=== PATIENT | female | born 1940 | race Caucasian/White ===

== ENCOUNTER 2017-04-26 13:17 | Inpatient (IN) ==
[2017-04-26] MEDS: LORazepam 0.5 MG TABLET PO PRN (15:30)
[2017-04-26 15:44] VITALS: BMI 23.2
--- NOTE | 2017-04-26 16:15 | History & Physical Report ---
History of Present Illness Date: 04/26/17 HPI: Safia Marmolejo is a 77 y/o woman who was admitted to [facility] on 04/26/17 for agitation, anxiety, hallucinations, and morbid ideation. Her PCP is Dr. Dave Naqvi. She recently underwent knee surgery 5 wks ago. Since then she hasn't eaten or slept well. She's been having hallucinations, confusion, and has been wandering intermittently since surgery. She verbalized that she wished she would . She was hospitalized 3 nights at [facility] but her symptoms did not improve, and arrangements were made for transfer to [facility]. Labs @ [facility]: WBC 5.86; hgb 14.8, plt 294, Na 141, K 3.6, CO2 23, BUN 10, Cr 0.69, Glu 140, Ca 8.9 (was 10.6 on admit), TSH 1.60, trop neg, CXR showed borderline cardiomegaly but no acute findings, LFTs normal. Was in A-fib on admit but that resolved. CT head was done but report is not included in transfer packet. Safia was seen soon after arriving to the unit. Her , son, and son-in- law were also present and provided collateral hx. She hasn't been sleeping well for about a year. She hasn't eaten hardly anything at all x 1 month. She's lost 25 lbs over the last year. Her hallucinations have been morbid and disturbing - seeing people, seeing toads all over, a 6.5 lb baby, a woman lying on the couch in anabaptism. Sometimes she recognizes that she's hallucinating but sometimes she doesn't. She states that ever since sx she's been in a panic - she reports "waking up" during sx in a panic, then fell back asleep. She then went "in a panic" when she found out she was on "hard medications" ie narcotics. She c/o dizziness but denies falling or syncope. No chest pain or SOA. States she has a-fib when she's panicked. She is not anticoagulated other than ASA, for reasons unbeknownst to her. She does not see a grinding room inspector. She denies any abdominal pain or GI c/o causing anorexia - simply has no appetite and nothing looks good. No n/v/d/c; urinary problems. She denies leg swelling bruising/wounds. No vision changes, focal neuro deficits, paresthesias or headaches. Family is primarily concerned about weight loss and anorexia along with psychiatric sx. also notes that she's been "more snippy" since starting on the Parkinson's meds in 2005. She also has a hx of hallucinations caused by her Parkinson's meds, and her neurologist Dr. Jones adjusted her meds. Review of Systems All systems PM: 10-point ROS was reviewed, no additional remarkable complaints except - Constitutional Constitutional: Present: as per HPI - EENMT Eyes: Present: as per HPI Nose: Present: as per HPI Mouth/Throat: Present: as per HPI - Cardiovascular Cardiovascular: Present: as per HPI Vascular: Present: see HPI - Respiratory Respiratory: Present: as per HPI - Gastrointestinal Gastrointestinal: Present: as per HPI - Genitourinary Genitourinary: Present: as per HPI - Musculoskeletal Musculoskeletal: Present: as per HPI - Integumentary/Breasts Integumentary: Present: as per HPI - Neurological Neurological: Present: as per HPI - Psychiatric Psychiatric: Present: as per HPI - Hematologic/Lymphatic Hematologic/Lymphatic: Present: as per HPI PFSH Paroxysmal A-fib Anxiety HLD HTN Parkinsons (2004) [place] Urge incontinence OA Surgical History: Right Total Knee Arthroplasty 03/23. Hysterectomy. Appendectomy Family History: Mother Uterine cancer Sister Uterine cancer Father unknown Safia is 1 of 7 siblings. All are still living, and most either have heart disease or cancer. 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 Medications Home Medications Medication Instructions Recorded Confirmed Type Entacapone 200 mg PO BID 02/17/17 04/26/17 History Aspirin *EC* [Ecotrin] 81 mg PO DAILY 04/26/17 04/26/17 History Carbidopa/Levodopa 1 mg PO BID 04/26/17 04/26/17 History [Carbidopa-Levodopa 25-100 Tab] LORazepam [Ativan] 0.5 mg PO TID PRN 04/26/17 04/26/17 History Losartan [Cozaar] 50 mg PO DAILY 04/26/17 04/26/17 History Allergies Allergy/AdvReac Type Severity Reaction Status Date / Time chlorpheniramine AdvReac Severe Tachycardia Verified 04/26/17 17:37 [From [facility]] codeine [From [facility]] AdvReac Severe Tachycardia Verified 04/26/17 17:37 dihydrocodeine AdvReac Severe Tachycardia Verified 04/26/17 17:37 [From [facility]] phenylephrine AdvReac Severe Tachycardia Verified 04/26/17 17:37 [From [facility]] pseudoephedrine AdvReac Severe Tachycardia Verified 04/26/17 17:37 [From [facility]] decongestants Allergy Unknown Uncoded 03/22/17 08:39 DECONGESTANTS AdvReac Unknown 'CLIMB THE Uncoded 03/18/17 08:29 MULLER' Exam Vital Signs: Temperature 98.6 F 04/26/17 15:00 Pulse Rate 67 04/26/17 15:00 Respiratory Rate 18 04/26/17 15:00 Blood Pressure 152/70 H 04/26/17 15:00 Pulse Oximetry 95 04/26/17 15:00 Height/Weight/BMI: Height 1.5 m Weight 52.2 kg Body Mass Index 23.2 - Constitutional Present: no acute distress, well nourished, well developed, thin - Routine HEENT Exam Head: Present: normocephalic Eye: Present: PERRL. Absent: conjunctival icterus, scleral injection ENT: Present: mucous membranes moist, oropharynx clear - Routine Neck Exam Present: supple. Absent: lymphadenopathy - Routine Respiratory Exam Present: CTA bilaterally - Routine Cardiovascular Exam Present: RRR, S1, S2, irregular rhythm - Routine Abdominal Exam Present: soft, normoactive bowel sounds, non distended, non tender - Routine Extremities Exam Present: no edema, pulses intact - Routine Skin Exam Present: intact, dry, warm - Routine Neurological Exam Present: alert, oriented X3, CN II-XII intact, motor deficit (weak but equal b/l ), moving all extremities, normal speech - Routine Psychiatric Exam Absent: normal affect (anxious) Assessment and Plan (1) Hallucinations Current visit: Yes Status: Acute Assessment and Plan: Impression Hallucinations Morbid ideation Paroxysmal A-fib Anxiety HLD HTN Parkinsons (2004) AK Urge incontinence OA Plan Agree with dietary consultation; check prealbumin level. Repeat basic labs in am; A1c and lipid panel also ordered. Check EKG d/t hx of PAF - defer decision to start anticoagulants to PCP - Cont ASA for now Statin was recently dc'd per spouse. Add'l records requested from [facility] - CT head & EKGs. Existing records were reviewed. -EKGs arrived - A-fib with RVR Rate 140 on 04/23; Sinus with arrhythmia on . -Head CT was done in clinic so will request report from [facility]. Provide safe, supportive environment. Cont meds for HTN, Parkinson's - both entacapone and carbidopa-levodopa may cause hallucinations, confusion, mood changes, agitation - may want to consult neurology for expert opinion. Hospital Course Summary Disclaimer: The visit summary below is not to be considered part of the above Progress Note. Hospital Course: 04/26/17 17:46 Impression Hallucinations Morbid ideation Paroxysmal A-fib Anxiety HLD HTN Parkinsons (2004) AK Urge incontinence OA Plan Agree with dietary consultation; check prealbumin level. Repeat basic labs in am; A1c and lipid panel also ordered. Check EKG d/t hx of PAF - defer decision to start anticoagulants to PCP - Cont ASA for now Statin was recently dc'd per spouse. Add'l records requested from [facility] - CT head & EKGs. Existing records were reviewed. -EKGs arrived - A-fib with RVR Rate 140 on 04/23; Sinus with arrhythmia on . -Head CT was done in clinic so will request report from [facility]. Provide safe, supportive environment. Cont meds for HTN, Parkinson's - both entacapone and carbidopa-levodopa may cause hallucinations, confusion, mood changes, agitation - may want to consult neurology for expert opinion.
[2017-04-26] MEDS ORDERED: HALOPERIDOL 5 MG/ML INJECTION IM PRN (18:28)
[2017-04-26] MEDS ORDERED: HALOPERIDOL 0.5 MG TABLET PO PRN (18:28)
--- OUTSIDE RECORDS SUMMARY | 2017-04-26 18:49 | External Medical Summary | Summary of Care ---
:1940 Author Name Avinash Jones M.D. Address Unavailable Unavailable , Care Team Providers Name Role Phone Dave Aguilar Unavailable Unavailable Unavailable Unavailable Unavailable Functional Status Functional Status Health Issues Name Dates Details No known functional status health issues Status: Cognitive Status Health Issues Name Dates Details No known cognitive status health issues Status: Problems Name Dates Details Parkinson's disease (332.0, G20) Status: Active Medications Name Dates Details Aspirin 325 MG Oral Tablet TAKE 1 TABLET DAILY. Refills: 0 Started ActiveLosartan Potassium 50 MG Oral Tablet TAKE 1 TABLET DAILY. Quantity: 1 Tablet Refills: 0 Started 25-Mar-2011 ActiveCarbidopa-Levodopa 25-100 MG Oral Tablet TAKE 1 TABLET 3 times daily Quantity: 90 Tablet Refills: 5 Started 25-May-2013 ActiveEntacapone 200 MG Oral Tablet Take one tab with each dose of Carbidopa/levodopa. Quantity: 90 Tablet Refills: 5 Started 11-Jul-2013 Active Allergies and Adverse Reactions Name Dates Details Antihistamine TABS Status: Active Procedures Procedure Dates Details Surgical history not documented Procedures not documented Immunization Name Dates Details Immunizations not documented Social History Name Dates Details Unknown If Ever Smoked (630040) Never smoker Smoking StatusUnknown if ever smokedNever smoker Vital Signs Date Test Result Details 09:44 BP Systolic 122 mm[Hg] Status: BP Diastolic 70 mm[Hg] Status: Heart Rate 68 /min Status: Weight 138.0 lb Status: Results Date Description Value Details Results not documented Plan of Care InstructionsInstructions not documentedPlanned Observations Name Dates Details Planned Goals not documented Goal Planned Encounters Appointment; Provider: Joni Jones On 22-May-2014 09:45 Instructions No Known Instructions Encounters Appointment; Joni Jones On Encounter Diagnosis: Problem not documented 09:45 Appointment; Joni Jones On 24-May-2013 Encounter Diagnosis: Problem not documented 16:15 Appointment; Joni Jones On 22-Mar-2013 Encounter Diagnosis: Problem not documented 09:00 Appointment; Joni Jones On 21-Sep-2012 Encounter Diagnosis: Problem not documented 10:45 Appointment; Joni Jones On 22-Mar-2012 Encounter Diagnosis: Problem not documented 09:45
--- OUTSIDE RECORDS SUMMARY | 2017-04-26 18:49 | External Medical Summary ---
:1940 Author Organization [facility]. Summary purpose CCDA Sent to [facility] Chief Complaint and Reason for Visit Admit Diagnosis 1 300.02 Problem list No authorized problems tracked for continuity of care are available for this visit. Encounters No authorized problems tracked for encounter diagnoses are available for this visit. Medications No medications recorded for this patient visit Allergies, adverse reactions, alerts No allergy information is available for this patient. Immunizations No immunizations recorded for this patient visit Relevant diagnostic tests and/or laboratory data No authorized results are available for this patient visit History of procedures No procedures recorded for this patient visit. Functional status No functional or cognitive status observations are available for this visit. Vital signs No authorized vital signs are available for this visit. Social history No Social History or smoking status observations were recorded for this visit. ( Unknown if ever smoked.) Treatment Plan No treatment plan text is available for this visit. Hospital discharge instructions No discharge instruction text is available for this visit.
[2017-04-26] MEDS ORDERED: ENTACAPONE 200 MG TABLET PO SCH (21:00)
[2017-04-27] MEDS: ACETAMINOPHEN 325 MG TABLET PO PRN ×2 (02:03→08:25)
[2017-04-27] MEDS: TRAMADOL 50 MG TABLET PO PRN ×2 (03:37→19:28)
[2017-04-27] MEDS: LORazepam 0.5 MG TABLET PO PRN ×3 (06:47→19:28)
[2017-04-27] MEDS: ASPIRIN *EC* 81 MG TABLET PO SCH (08:25)
[2017-04-27] MEDS: LOSARTAN 50 MG TABLET PO SCH (08:25)
--- NOTE | 2017-04-27 20:57 | 24 Hour Neuropsychiatic Eval ---
Date of Admission: 04/26/17 14:30 Chief complaint: Hallucinations History of Present Illness: Patient is a 77-year-old , retired female who was admitted to [facility] on 04/26/17 at family's request due to increased agitation and VH. Patient has also had recent suicidal thoughts which she acted on then aborted. Patient underwent knee surgery 5 weeks prior. She reportedly has not eaten or slept well since that time, and family reports a decline since then with hallucinations, confusion and wandering. Patient was hospitalized medically prior to transfer here with the following labs: WBC 5.86; hgb 14.8, plt 294, Na 141, K 3.6, CO2 23, BUN 10, Cr 0.69, Glu 140, Ca 8.9 (was 10.6 on admit), TSH 1.60, trop neg, CXR showed borderline cardiomegaly but no acute findings, LFTs normal. Was in A-fib on admit but that resolved. CT head was done but report is not included in transfer packet. (Reportedly negative). Patient is pleasant and cooperative during interview though a somewhat unreliable historian. She is oriented to self only. She reports recent anxiety and depression. In the last week, she had suicidal thoughts with plan to drive her car into water. She states that 2 nights in a row, she took the car out driving to find water though came back home when she was unable to (patient has been instructed not to drive). She reports not sleeping well and eating well for ~1 year. She estimates she lost ~200 lb. though family reports it has been only 30. Patient denies any HI. Patient does report having VH which she minimizes on interview though she reported several bizarre VH to staff last night. Patient has been taking medications for Parkinson's disease since 2005 and has had hallucinations in the past related to this. When asked about possible maria luisa symptoms, patient states that she has gone for days with very little sleep because she was restless and that at times she would clean - states she was mean during these times. Will discuss more with family as patient is unreliable at this point. Overnight, patient was quite agitated and combative with nursing staff. She shredded her sheets, which were removed from her room due to ligature risk. She was much more calm and cooperative during the day today. is DPOA though there are concerns with his cognitive status. Daughter and son are at bedside as well and supportive. Past psych history: Patient states she took an antidepressant in the past but can't remember the name and didn't feel it was helpful. She denies any suicide attempts or other past psych hospitalizations. Depression: Increased Anxiety, Increased Irritability, Difficulty Sleeping, Changes in Appetite, Significant Weight Loss Maria Luisa: Irritability, Need less sleep Psychosis: Hallucinations/Illusions Dementia: Memory Impairment, Poor Executive Functioning [facility] Patient Stated Medical History Parkinson's Disease Yes Cardiac Arrhythmia Yes Heart Murmur Yes Hypertension Yes Sleep Apnea No Hx Incontinence Yes: urge Osteoarthritis Yes: right knee Other Musculoskeletal Yes: [facility] Medical History (Last Reviewed 04/12/17 @ 16:11 by Sujit Baez MD) Hallucinations (Acute Medical) Parkinson disease (Acute Medical) BMI (body mass index) 20.0-29.9 (Acute Medical) Hyperlipemia (Acute Medical) Hypertension (Acute Medical) Primary osteoarthritis of right knee (Acute Medical) HTN (hypertension) (Chronic Medical) High cholesterol (Chronic Medical) Parkinson disease (Chronic Medical) Surgical History: Right Total Knee Arthroplasty 03/23. Hysterectomy. 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 Review of Systems All systems: reviewed and no additional remarkable complaints except as stated - Constitutional Constitutional: Present: as per HPI, fatigue, weight loss - EENMT Nose: Present: as per HPI Mouth/Throat: Present: as per HPI - Cardiovascular Vascular: Present: see HPI - Musculoskeletal Musculoskeletal: Present: other (pain s/p knee surgery) - Neurological Neurological: Present: memory loss, other (unsteadiness due to knee?) - Psychiatric Psychiatric: Present: abnormal sleep pattern, anxiety, behavioral changes, depression, difficulty concentrating, hallucinations, panic attacks, paranoia ( mild, intermittent), suicidal ideation, visual hallucinations. Absent: homicidal ideation Mental Status Exam Vitals: Last Vital Signs Temp 97.6 F 04/27/17 19:13 Pulse 66 04/27/17 19:13 Resp 20 04/27/17 19:13 BP 168/68 H 04/27/17 19:13 Pulse Ox 94 04/27/17 19:13 Height: 1.5 m Weight: 52.2 kg - Mental Status Exam Muscle Strength/Tone: Normal Dressing: Casual Grooming: Good Attitude: Cooperative Motor Activity: Normal Eye Contact: Fair Speech: Normal Volume: Normal Rhythm: Appropriate Rhythm Orientation: Disoriented to time, Disoriented to place, Disoriented to situation , Oriented to person Mood: Depressed Affect: Sad (labile on unit) Rate of Thoughts: Delayed Thought Organization: Organized (mostly) Associations: Intact Thought Content: Ruminations, Somatic Concerns Perception/Psychotic: Psychotic Current Hallucinations: Visual (intermittent) Language: Naming Intact Fund of Knowledge: Other (decreased) Memory: Poor-recent Suicidal Ideation: Other (Admits SI with aborted suicide attempt prior to admission) Homicidal Ideation: Denies Insight: Impaired Judgement: Impaired Impulse Control: Poor - Laboratory Result Diagrams: 04/27/17 09:38 04/27/17 09:38 Laboratory Results - last 24 hr 04/27/17 04/27/17 04/27/17 09:38 09:38 09:38 WBC 4.1 L RBC 3.94 L Hgb 12.1 Hct 36.5 MCV 92.6 MCH 30.7 MCHC 33.2 RDW Std Deviation 41.3 Plt Count 216 MPV 10.1 Immature Gran % (Auto) 0.0 Neut % (Auto) 58.6 Lymph % (Auto) 32.6 [place] % (Auto) 7.2 Eos % (Auto) 1.4 Baso % (Auto) 0.2 Neut # (Auto) 2.4 Lymph # (Auto) 1.4 [place] # (Auto) 0.3 Eos # (Auto) 0.1 Baso # (Auto) 0.0 Abs Immat Gran (auto) 0.00 Turbidity < 20 Sodium 141 Potassium 3.4 L Chloride 111 H Carbon Dioxide 23 Anion Gap 7 BUN 8.0 Creatinine 0.6 L GFR Calculation 97 BUN/Creatinine Ratio 13 Glucose 104 Hemoglobin A1c 5.2 L Calculated Osmolality 269 Calcium 9.1 Magnesium 2.1 Total Bilirubin 0.60 Icterus Index < 2 AST 18 ALT 33 Alkaline Phosphatase 58 Total Protein 6.3 Albumin 3.6 Globulin 2.7 Albumin/Globulin Ratio 1.3 Prealbumin 22.3 Triglycerides 155 H Cholesterol 134 LDL Cholesterol, Calc 57.0 L VLDL Cholesterol 31.0 H HDL Cholesterol 46 Cholesterol/HDL Ratio 2.9 Specimen Hemolysis < 15 Assessment and Plan (1) Psychosis Qualifiers: Psychosis type: unspecified psychosis type Qualified Code(s): F29 - Unspecified psychosis not due to a substance or known physiological condition Current visit: Yes Status: Acute R/O MDD, recurrent, severe R/O Bipolar disorder, MRE depressed or mixed R/O Delirium R/O Major neurocognitive disorder (2) Parkinson disease Current visit: No Status: Acute (3) Hypertension Current visit: No Status: Acute (4) Primary osteoarthritis of right knee Current visit: No Status: Acute Ad[facility] 04[facility]26[facility]; evaluate and stabilize. Safety and elopement precautions in place. Will order/review following labs: CBC, CMP, TSH, UA, Vitamin B12 and folate. CT negative to admission. Plan to hold Parkinson's medications (Sinemet, Entacapone) that may be contributing to psychosis and monitor mood, behavior. Will obtain further collateral from family. There is some concern for 's cognitive status (he is DPOA); will discuss with children. Treatment plan discussed with patient, family tonight and they are all in agreement with this. Continue to monitor mood, behavior and response to treatment.
[2017-04-28] MEDS: TRAMADOL 50 MG TABLET PO PRN (02:10)
[2017-04-28] MEDS: LORazepam 0.5 MG TABLET PO PRN (02:10)
[2017-04-28] MEDS: ASPIRIN *EC* 81 MG TABLET PO SCH (08:16)
[2017-04-28] MEDS: LOSARTAN 50 MG TABLET PO SCH (08:16)
--- NOTE | 2017-04-28 18:44 | Neuropsych Progress Note ---
[facility] Subjective Date: 04/29/17 - Sujective/Severity of Illness Medications: Acetaminophen (Tylenol) 325 - 650 mg PO Q5H PRN PRN Reason: Discomfort Last Admin: 04/27/17 08:25 Dose: 650 mg Aspirin (Ecotrin) 81 mg PO DAILY [facility] Last Admin: 04/28/17 08:16 Dose: 81 mg Carbidopa/Levodopa (Sinemet) 1 tab PO BID [facility] Last Admin: 04/26/17 20:10 Dose: 1 tab Entacapone (Comtan) 200 mg PO BID [facility] Last Admin: 04/26/17 20:10 Dose: 200 mg Haloperidol (Haldol) 0.5 mg PO Q6H PRN PRN Reason: Extreme agitation Haloperidol Lactate (Haldol) 0.5 mg IM Q6H PRN PRN Reason: Extreme agitation Lorazepam (Ativan Inj) 0.5 mg IM Q6H PRN PRN Reason: Extreme agitation Lorazepam (Ativan) 0.5 mg PO Q6H PRN PRN Reason: Extreme agitation Last Admin: 04/28/17 02:10 Dose: 0.5 mg Losartan Potassium (Cozaar) 50 mg PO DAILY [facility] Last Admin: 04/28/17 08:16 Dose: 50 mg Tramadol HCl (Ultram) 50 mg PO Q6H PRN PRN Reason: Pain Last Admin: 04/28/17 02:10 Dose: 50 mg Subjective: Patient seen and chart reviewed. Case discussed with treatment team. On interview, patient is pleasant and cooperative. She reports that her mood is better since admission though she cannot tell me more detail about how/why. She denies any recent AVH or paranoia. Patient denies any SI, HI or AVH. Patient denies any adverse side effects related to psychotropic medications. She does complain of R knee pain s/p surgery; PRN tramadol is helpful for this. Patient wishes to avoid narcotics, which I am in agreement with. Nursing staff report patient has been pleasant and cooperative, without significant behavioral difficulties on the unit. She has been adherent with medications. Patient slept well overnight. VSS. Patient continues to have limited appetite. Psychotropic PRNs required in the past 24 hours: Ativan 0.5mg PO x1 at HS per daughter's request as she felt her mother was restless and it would help her go to sleep (it was effective). Tremor is quite mild at this point even without these meds. Discussed whether mirtazapine which may be helpful for mood, anxiety, sleep and appetite - patient is considering whether she would like to start this medication. I do believe depression is still problematic though psychosis is resolving. Start Time: 14:00 Stop Time: 14:20 Mental Status Exam Vitals: Last Vital Signs Temp 97.0 F 04/28/17 16:00 Pulse 70 04/28/17 16:00 Resp 18 04/28/17 16:00 BP 164/67 H 04/28/17 16:00 Pulse Ox 96 04/28/17 16:00 Height: 1.5 m Weight: 52.2 kg - Mental Status Exam Muscle Strength/Tone: Normal Dressing: Casual Grooming: Good Attitude: Cooperative Motor Activity: Normal Eye Contact: Fair Speech: Normal Volume: Normal Rhythm: Appropriate Rhythm Orientation: Disoriented to time, Disoriented to place, Oriented to person Mood: Other ("better") Affect: Relaxed (continues to be restricted) Rate of Thoughts: Delayed Thought Organization: Organized (mostly) Associations: Intact Abstract Reasoning: Intact, able to abstract Thought Content: Ruminations (improved), Somatic Concerns Perception/Psychotic: Hx psychosis, not current Language: Naming Intact Fund of Knowledge: Other (decreased) Memory: Poor-recent Suicidal Ideation: Other (Admits SI with aborted suicide attempt prior to admission) Homicidal Ideation: Denies Insight: Impaired Judgement: Impaired Impulse Control: Fair - Laboratory Result Diagrams: 04/27/17 09:38 04/27/17 09:38 Assessment and Plan (1) Psychosis Qualifiers: Psychosis type: unspecified psychosis type Qualified Code(s): F29 - Unspecified psychosis not due to a substance or known physiological condition Current visit: Yes Status: Acute (2) Parkinson disease Current visit: No Status: Acute (3) Hypertension Current visit: No Status: Acute (4) Primary osteoarthritis of right knee Current visit: No Status: Acute Hospital Course Summary Disclaimer: The visit summary below is not to be considered part of the above Progress Note. Hospital Course: 04/26/17 17:46 Impression Hallucinations Morbid ideation Paroxysmal A-fib Anxiety HLD HTN Parkinsons (2004) [place] Urge incontinence OA Plan Agree with dietary consultation; check prealbumin level. Repeat basic labs in am; A1c and lipid panel also ordered. Check EKG d/t hx of PAF - defer decision to start anticoagulants to PCP - Cont ASA for now Statin was recently dc'd per spouse. Add'l records requested from [place] - CT head & EKGs. Existing records were reviewed. -EKGs arrived - A-fib with RVR Rate 140 on 04/23; Sinus with arrhythmia on . -Head CT was done in clinic so will request report from [facility]. Provide safe, supportive environment. Cont meds for HTN, Parkinson's - both entacapone and carbidopa-levodopa may cause hallucinations, confusion, mood changes, agitation - may want to consult neurology for expert opinion. 04/28/17 Psych: Parkinson's medications held since admission due to concerns listed above by hospitalist. Patient reports improvement in mood, decrease in hallucinations. Tremor is quite mild at this point even without these meds. Discussed whether mirtazapine which may be helpful for mood, anxiety, sleep and appetite - patient is considering whether she would like to start this medication. I do believe depression is still problematic though psychosis is resolving. Continue current care otherwise.
[2017-04-29] MEDS: LORazepam 0.5 MG TABLET PO PRN ×3 (00:07→19:47)
[2017-04-29] MEDS: TRAMADOL 50 MG TABLET PO PRN ×2 (00:43→19:47)
[2017-04-29] MEDS: ACETAMINOPHEN 325 MG TABLET PO PRN (03:59)
[2017-04-29] MEDS: LOSARTAN 50 MG TABLET PO SCH (08:46)
[2017-04-29] MEDS: ASPIRIN *EC* 81 MG TABLET PO SCH (08:46)
--- NOTE | 2017-04-29 09:38 | Progress Note ---
- Date 04/29/17 Subjective: Safia is seen today in follow up while eating breakfast. She will answer in short responses. She denies having any pain or shortness of breath. She states that she needs to bowel movement. Last reported bm in the computer was 04/27. Blood pressure this morning 148/70. Objective Vital signs: Temperature 98.2 F 04/28/17 19:32 Pulse Rate 68 04/29/17 04:24 Respiratory Rate 18 04/29/17 04:24 Blood Pressure 148/70 H 04/29/17 04:24 Pulse Oximetry 97 04/29/17 04:24 Height/Weight/BMI: Height 1.5 m Weight 52.2 kg Body Mass Index 23.2 - Constitutional Present: no acute distress, well nourished, well developed - Routine HEENT Exam Eye: Present: EOMI ENT: Present: mucous membranes moist, dentition normal - Routine Respiratory Exam Present: CTA bilaterally. Absent: wheezes - Routine Cardiovascular Exam Present: RRR, S1, S2. Absent: murmur - Routine Abdominal Exam Present: soft, normoactive bowel sounds, non distended. Absent: tenderness - Routine Extremities Exam Present: full ROM - Routine Skin Exam Present: intact, dry, warm - Routine Neurological Exam Present: alert, CN II-XII intact - Routine Lymphatic Exam Lymphatic: Absent: adenopathy - Routine Psychiatric Exam Present: cooperative Results - Labs CBC & Chem 7: 04/27/17 09:38 04/27/17 09:38 Assessment and Plan (1) Hallucinations Current visit: Yes Status: Acute Assessment and Plan: Impression Hallucinations Morbid ideation Paroxysmal A-fib Anxiety HLD HTN Parkinsons (2004) [place] Urge incontinence OA Plan Overall doing well. Blood pressure has been elevated intermittently. Continue on Cozaar Entacapone and carbidopa-levodopa may cause hallucinations, confusion, mood changes, agitation. Currently on hold. Ultram or tylenol as needed for pain Will check BMP today given initial mild hypokalemia Miralax and MOM as needed for bowel motivation Hospital Course Summary Disclaimer: The visit summary below is not to be considered part of the above Progress Note. Hospital Course: 04/26/17 17:46 Impression Hallucinations Morbid ideation Paroxysmal A-fib Anxiety HLD HTN Parkinsons (2004) [place] Urge incontinence OA Plan Agree with dietary consultation; check prealbumin level. Repeat basic labs in am; A1c and lipid panel also ordered. Check EKG d/t hx of PAF - defer decision to start anticoagulants to PCP - Cont ASA for now Statin was recently dc'd per spouse. Add'l records requested from [place] - CT head & EKGs. Existing records were reviewed. -EKGs arrived - A-fib with RVR Rate 140 on 04/23; Sinus with arrhythmia on . -Head CT was done in clinic so will request report from [facility]. Provide safe, supportive environment. Cont meds for HTN, Parkinson's - both entacapone and carbidopa-levodopa may cause hallucinations, confusion, mood changes, agitation - may want to consult neurology for expert opinion. 04/28/17 Psych: Parkinson's medications held since admission due to concerns listed above by hospitalist. Patient reports improvement in mood, decrease in hallucinations. Tremor is quite mild at this point even without these meds. Discussed whether mirtazapine which may be helpful for mood, anxiety, sleep and appetite - patient is considering whether she would like to start this medication. I do believe depression is still problematic though psychosis is resolving. Continue current care otherwise.
[2017-04-29] MEDS: POLYETHYL GLYCOL 3350 17gm PACKET PO SCH (12:10)
--- NOTE | 2017-04-29 20:44 | Neuropsych Progress Note ---
[facility] Subjective Date: 04/29/17 - Sujective/Severity of Illness Medications: Acetaminophen (Tylenol) 325 - 650 mg PO Q5H PRN PRN Reason: Discomfort Last Admin: 04/29/17 03:59 Dose: 650 mg Aspirin (Ecotrin) 81 mg PO DAILY [facility] Last Admin: 04/29/17 08:46 Dose: 81 mg Carbidopa/Levodopa (Sinemet) 1 tab PO BID [facility] Last Admin: 04/26/17 20:10 Dose: 1 tab Entacapone (Comtan) 200 mg PO BID [facility] Last Admin: 04/26/17 20:10 Dose: 200 mg Haloperidol (Haldol) 0.5 mg PO Q6H PRN PRN Reason: Extreme agitation Haloperidol Lactate (Haldol) 0.5 mg IM Q6H PRN PRN Reason: Extreme agitation Lorazepam (Ativan Inj) 0.5 mg IM Q6H PRN PRN Reason: Extreme agitation Lorazepam (Ativan) 0.5 mg PO Q6H PRN PRN Reason: Extreme agitation Last Admin: 04/29/17 19:47 Dose: 0.5 mg Losartan Potassium (Cozaar) 50 mg PO DAILY [facility] Last Admin: 04/29/17 08:46 Dose: 50 mg Magnesium Hydroxide (Mom) 30 ml PO DAILY PRN PRN Reason: Constipation Polyethylene Glycol (Miralax) 17 gm PO DAILY [facility] Last Admin: 04/29/17 12:10 Dose: 17 gm Tramadol HCl (Ultram) 50 mg PO Q6H PRN PRN Reason: Pain Last Admin: 04/29/17 19:47 Dose: 50 mg Subjective: Pt seen and chart examined. Nursing reports pt was agitated last night with VH. Pt received Ativan around midnight. Nursing reports pt was apologetic this AM. On face to face the pt is resting quietly in bed. She reports she remains depressed but denies S/I. Denies pain. Tolerating meds Start Time: 20:00 Stop Time: 20:15 Mental Status Exam Vitals: Last Vital Signs Temp 98.5 F 04/29/17 20:08 Pulse 73 04/29/17 20:08 Resp 18 04/29/17 20:08 BP 164/67 H 04/29/17 20:08 Pulse Ox 94 04/29/17 20:08 Height: 1.5 m Weight: 52.2 kg - Mental Status Exam Muscle Strength/Tone: Normal Dressing: Casual Grooming: Good Attitude: Cooperative Motor Activity: Normal Eye Contact: Fair Speech: Normal Volume: Normal Rhythm: Appropriate Rhythm Orientation: Disoriented to time, Disoriented to place, Oriented to person Mood: Other ("better") Rate of Thoughts: Delayed Thought Organization: Organized (mostly) Associations: Intact Abstract Reasoning: Intact, able to abstract Thought Content: Ruminations (improved), Somatic Concerns Perception/Psychotic: Hx psychosis, not current Current Hallucinations: Visual (intermittent) Language: Naming Intact Fund of Knowledge: Other (decreased) Memory: Poor-recent Suicidal Ideation: Other (Admits SI with aborted suicide attempt prior to admission) Homicidal Ideation: Denies Insight: Impaired Judgement: Impaired Impulse Control: Fair - Laboratory Result Diagrams: 04/27/17 09:38 04/29/17 13:05 Laboratory Results - last 24 hr 04/29/17 13:05 Turbidity < 20 Sodium 143 Potassium 3.9 Chloride 108 H Carbon Dioxide 26 Anion Gap 9 BUN 12.0 D Creatinine 0.8 D GFR Calculation 69 BUN/Creatinine Ratio 15 Glucose 142 H Calculated Osmolality 277 Calcium 9.5 Icterus Index < 2 Specimen Hemolysis < 15 Assessment and Plan (1) Primary osteoarthritis of right knee Current visit: No Status: Acute (2) Hypertension Current visit: No Status: Acute (3) Parkinson disease Current visit: No Status: Acute (4) Psychosis Qualifiers: Psychosis type: unspecified psychosis type Qualified Code(s): F29 - Unspecified psychosis not due to a substance or known physiological condition Current visit: Yes Status: Acute Hospital Course Summary Disclaimer: The visit summary below is not to be considered part of the above Progress Note. Hospital Course: 04/26/17 17:46 Impression Hallucinations Morbid ideation Paroxysmal A-fib Anxiety HLD HTN Parkinsons (2004) [place] Urge incontinence OA Plan Agree with dietary consultation; check prealbumin level. Repeat basic labs in am; A1c and lipid panel also ordered. Check EKG d/t hx of PAF - defer decision to start anticoagulants to PCP - Cont ASA for now Statin was recently dc'd per spouse. Add'l records requested from [place] - CT head & EKGs. Existing records were reviewed. -EKGs arrived - A-fib with RVR Rate 140 on 04/23; Sinus with arrhythmia on . -Head CT was done in clinic so will request report from [facility]. Provide safe, supportive environment. Cont meds for HTN, Parkinson's - both entacapone and carbidopa-levodopa may cause hallucinations, confusion, mood changes, agitation - may want to consult neurology for expert opinion. 04/28/17 Psych: Parkinson's medications held since admission due to concerns listed above by hospitalist. Patient reports improvement in mood, decrease in hallucinations. Tremor is quite mild at this point even without these meds. Discussed whether mirtazapine which may be helpful for mood, anxiety, sleep and appetite - patient is considering whether she would like to start this medication. I do believe depression is still problematic though psychosis is resolving. Continue current care otherwise. 04/29/17 20:43 Discussed with . Family requested Trazodone and Ativan at HS for sleep. Discussed Ativan would be fine but recommended Remeron instead of Trazodone to target sleep and appetite and mood. DPOA is on agreement
[2017-04-29] MEDS: MIRTAZAPINE 15 MG TABLET PO SCH (21:00)
[2017-04-30] MEDS: ACETAMINOPHEN 325 MG TABLET PO PRN (02:18)
[2017-04-30] MEDS: LORazepam 0.5 MG TABLET PO PRN (04:12)
[2017-04-30] MEDS: TRAMADOL 50 MG TABLET PO PRN ×3 (04:12→19:13)
[2017-04-30] MEDS: LOSARTAN 50 MG TABLET PO SCH (08:27)
[2017-04-30] MEDS: POLYETHYL GLYCOL 3350 17gm PACKET PO SCH (08:27)
[2017-04-30] MEDS: ASPIRIN *EC* 81 MG TABLET PO SCH (08:27)
--- NOTE | 2017-04-30 11:42 | Neuropsych Progress Note ---
[facility] Subjective Date: 04/30/17 - Sujective/Severity of Illness Medications: Acetaminophen (Tylenol) 325 - 650 mg PO Q5H PRN PRN Reason: Discomfort Last Admin: 04/30/17 02:18 Dose: 650 mg Aspirin (Ecotrin) 81 mg PO DAILY [facility] Last Admin: 04/30/17 08:27 Dose: 81 mg Carbidopa/Levodopa (Sinemet) 1 tab PO BID [facility] Last Admin: 04/26/17 20:10 Dose: 1 tab Entacapone (Comtan) 200 mg PO BID [facility] Last Admin: 04/26/17 20:10 Dose: 200 mg Haloperidol (Haldol) 0.5 mg PO Q6H PRN PRN Reason: Extreme agitation Haloperidol Lactate (Haldol) 0.5 mg IM Q6H PRN PRN Reason: Extreme agitation Lorazepam (Ativan Inj) 0.5 mg IM Q6H PRN PRN Reason: Extreme agitation Lorazepam (Ativan) 0.5 mg PO Q6H PRN PRN Reason: Extreme agitation Last Admin: 04/30/17 04:12 Dose: 0.5 mg Lorazepam (Ativan) 0.5 mg PO HS [facility] Losartan Potassium (Cozaar) 50 mg PO DAILY [facility] Last Admin: 04/30/17 08:27 Dose: 50 mg Magnesium Hydroxide (Mom) 30 ml PO DAILY PRN PRN Reason: Constipation Mirtazapine (Remeron) 15 mg PO HS [facility] Last Admin: 04/29/17 21:00 Dose: Not Given Polyethylene Glycol (Miralax) 17 gm PO DAILY [facility] Last Admin: 04/30/17 08:27 Dose: 17 gm Tramadol HCl (Ultram) 50 mg PO Q6H PRN PRN Reason: Pain Last Admin: 04/30/17 10:08 Dose: 50 mg Subjective: Pt seen and chart examined. Nursing reports pt was anxious last night and was having VH of snakes in her bed. Pt did not get HS Remeron. On face to face thee pt is seen with her . She states she is doing well. She reports her mood is improved and she denies any S/I. Tolerating meds Start Time: 11:00 Stop Time: 11:15 Mental Status Exam Vitals: Last Vital Signs Temp 98.0 F 04/30/17 08:00 Pulse 71 04/30/17 08:00 Resp 16 04/30/17 08:00 BP 160/66 H 04/30/17 08:00 Pulse Ox 95 04/30/17 08:00 Height: 1.5 m Weight: 52.2 kg - Mental Status Exam Muscle Strength/Tone: Normal Dressing: Casual Grooming: Good Attitude: Cooperative Motor Activity: Normal Eye Contact: Fair Speech: Normal Volume: Normal Rhythm: Appropriate Rhythm Orientation: Disoriented to time, Disoriented to place, Oriented to person Mood: Other ("better") Rate of Thoughts: Delayed Thought Organization: Organized (mostly) Associations: Intact Abstract Reasoning: Intact, able to abstract Thought Content: Ruminations (improved), Somatic Concerns Perception/Psychotic: Hx psychosis, not current Current Hallucinations: Visual (intermittent) Language: Naming Intact Fund of Knowledge: Other (decreased) Memory: Poor-recent Suicidal Ideation: Other (Admits SI with aborted suicide attempt prior to admission) Homicidal Ideation: Denies Insight: Impaired Judgement: Impaired Impulse Control: Fair - Laboratory Result Diagrams: 04/27/17 09:38 04/29/17 13:05 Laboratory Results - last 24 hr 04/29/17 13:05 Turbidity < 20 Sodium 143 Potassium 3.9 Chloride 108 H Carbon Dioxide 26 Anion Gap 9 BUN 12.0 D Creatinine 0.8 D GFR Calculation 69 BUN/Creatinine Ratio 15 Glucose 142 H Calculated Osmolality 277 Calcium 9.5 Icterus Index < 2 Specimen Hemolysis < 15 Assessment and Plan (1) Primary osteoarthritis of right knee Current visit: No Status: Acute (2) Hypertension Current visit: No Status: Acute (3) Parkinson disease Current visit: No Status: Acute (4) Psychosis Qualifiers: Psychosis type: unspecified psychosis type Qualified Code(s): F29 - Unspecified psychosis not due to a substance or known physiological condition Current visit: Yes Status: Acute Hospital Course Summary Disclaimer: The visit summary below is not to be considered part of the above Progress Note. Hospital Course: 04/26/17 17:46 Impression Hallucinations Morbid ideation Paroxysmal A-fib Anxiety HLD HTN Parkinsons (2004) [place] Urge incontinence OA Plan Agree with dietary consultation; check prealbumin level. Repeat basic labs in am; A1c and lipid panel also ordered. Check EKG d/t hx of PAF - defer decision to start anticoagulants to PCP - Cont ASA for now Statin was recently dc'd per spouse. Add'l records requested from [place] - CT head & EKGs. Existing records were reviewed. -EKGs arrived - A-fib with RVR Rate 140 on 04/23; Sinus with arrhythmia on . -Head CT was done in clinic so will request report from [facility]. Provide safe, supportive environment. Cont meds for HTN, Parkinson's - both entacapone and carbidopa-levodopa may cause hallucinations, confusion, mood changes, agitation - may want to consult neurology for expert opinion. 04/28/17 Psych: Parkinson's medications held since admission due to concerns listed above by hospitalist. Patient reports improvement in mood, decrease in hallucinations. Tremor is quite mild at this point even without these meds. Discussed whether mirtazapine which may be helpful for mood, anxiety, sleep and appetite - patient is considering whether she would like to start this medication. I do believe depression is still problematic though psychosis is resolving. Continue current care otherwise. 04/29/17 20:43 Discussed with . Family requested Trazodone and Ativan at for sleep. Discussed Ativan would be fine but recommended Remeron instead of Trazodone to target sleep and appetite and mood. DPOA is on agreement 04/30/17 11:42 Pt continues to have poor sleep and VH. Will give Remeron tonight and consider Seroquel in the future
[2017-04-30] MEDS: LORazepam 0.5 MG TABLET PO SCH (19:13)
[2017-04-30] MEDS: MIRTAZAPINE 15 MG TABLET PO SCH (19:14)
[2017-05-01] MEDS: LORazepam 0.5 MG TABLET PO SCH ×3 (02:40→23:45)
[2017-05-01] MEDS: MIRTAZAPINE 15 MG TABLET PO SCH ×3 (02:40→23:45)
[2017-05-01] MEDS: LOSARTAN 50 MG TABLET PO SCH (08:40)
[2017-05-01] MEDS: ASPIRIN *EC* 81 MG TABLET PO SCH (08:40)
[2017-05-01] MEDS: POLYETHYL GLYCOL 3350 17gm PACKET PO SCH (08:40)
[2017-05-01] MEDS ORDERED: Bisacodyl EC TAB 5 MG TABLET PO PRN (09:11)
[2017-05-01] MEDS: ACETAMINOPHEN 325 MG TABLET PO PRN ×2 (09:30→19:44)
--- NOTE | 2017-05-01 10:16 | Neuropsych Progress Note ---
[facility] Subjective Date: 05/01/17 - Sujective/Severity of Illness Medications: Acetaminophen (Tylenol) 325 - 650 mg PO Q5H PRN PRN Reason: Discomfort Last Admin: 05/01/17 09:30 Dose: 650 mg Aspirin (Ecotrin) 81 mg PO DAILY [facility] Last Admin: 05/01/17 08:40 Dose: 81 mg Bisacodyl (Dulcolax) 10 mg PO DAILY PRN PRN Reason: Constipation Last Admin: 05/01/17 09:20 Dose: 10 mg Carbidopa/Levodopa (Sinemet) 1 tab PO BID [facility] Last Admin: 04/26/17 20:10 Dose: 1 tab Entacapone (Comtan) 200 mg PO BID [facility] Last Admin: 04/26/17 20:10 Dose: 200 mg Haloperidol (Haldol) 0.5 mg PO Q6H PRN PRN Reason: Extreme agitation Haloperidol Lactate (Haldol) 0.5 mg IM Q6H PRN PRN Reason: Extreme agitation Lorazepam (Ativan Inj) 0.5 mg IM Q6H PRN PRN Reason: Extreme agitation Lorazepam (Ativan) 0.5 mg PO Q6H PRN PRN Reason: Extreme agitation Last Admin: 04/30/17 04:12 Dose: 0.5 mg Lorazepam (Ativan) 0.5 mg PO HS [facility] Last Admin: 05/01/17 02:40 Dose: Not Given Losartan Potassium (Cozaar) 50 mg PO DAILY [facility] Last Admin: 05/01/17 08:40 Dose: 50 mg Magnesium Hydroxide (Mom) 30 ml PO DAILY PRN PRN Reason: Constipation Mirtazapine (Remeron) 15 mg PO HS [facility] Last Admin: 05/01/17 02:40 Dose: Not Given Polyethylene Glycol (Miralax) 17 gm PO DAILY [facility] Last Admin: 05/01/17 08:40 Dose: 17 gm Quetiapine Fumarate (Seroquel) 25 mg PO TID PRN Tramadol HCl (Ultram) 50 mg PO Q6H PRN PRN Reason: Pain Last Admin: 04/30/17 19:13 Dose: 50 mg Subjective: Pt seen and chart examined. Nursing reports pt woke up yesterday after having a bad dream and was extremely anxious and agitated for some time in the afternoon. Pt was given Ativan 1mg IM at 1500. On face to face the pt states she remembers what happened and she believed "God was coming in the windows". She states she remembers it all and realizes "that was crazy" although she states it was real at the time. She is doing better today. Slept well last night. mood is stable. Denies any S/I. Start Time: 09:00 Stop Time: 09:15 Mental Status Exam Vitals: Last Vital Signs Temp 97.6 F 05/01/17 08:00 Pulse 75 05/01/17 08:00 Resp 18 05/01/17 08:00 BP 150/66 H 05/01/17 08:00 Pulse Ox 98 05/01/17 08:00 Height: 1.5 m Weight: 52.2 kg - Mental Status Exam Muscle Strength/Tone: Normal Dressing: Casual Grooming: Good Attitude: Cooperative Motor Activity: Normal Eye Contact: Fair Speech: Normal Volume: Normal Rhythm: Appropriate Rhythm Orientation: Disoriented to time, Disoriented to place, Oriented to person Mood: Other ("better") Rate of Thoughts: Delayed Thought Organization: Organized (mostly) Associations: Intact Abstract Reasoning: Intact, able to abstract Thought Content: Ruminations (improved), Somatic Concerns Perception/Psychotic: Hx psychosis, not current Current Hallucinations: Visual (intermittent) Language: Naming Intact Fund of Knowledge: Other (decreased) Memory: Poor-recent Suicidal Ideation: Other (Admits SI with aborted suicide attempt prior to admission) Homicidal Ideation: Denies Insight: Impaired Judgement: Impaired Impulse Control: Fair - Laboratory Result Diagrams: 04/27/17 09:38 04/29/17 13:05 Assessment and Plan (1) Primary osteoarthritis of right knee Current visit: No Status: Acute (2) Hypertension Current visit: No Status: Acute (3) Parkinson disease Current visit: No Status: Acute (4) Psychosis Qualifiers: Psychosis type: unspecified psychosis type Qualified Code(s): F29 - Unspecified psychosis not due to a substance or known physiological condition Current visit: Yes Status: Acute Hospital Course Summary Disclaimer: The visit summary below is not to be considered part of the above Progress Note. Hospital Course: 04/26/17 17:46 Impression Hallucinations Morbid ideation Paroxysmal A-fib Anxiety HLD HTN Parkinsons (2004) [place] Urge incontinence OA Plan Agree with dietary consultation; check prealbumin level. Repeat basic labs in am; A1c and lipid panel also ordered. Check EKG d/t hx of PAF - defer decision to start anticoagulants to PCP - Cont ASA for now Statin was recently dc'd per spouse. Add'l records requested from [place] - CT head & EKGs. Existing records were reviewed. -EKGs arrived - A-fib with RVR Rate 140 on 04/23; Sinus with arrhythmia on . -Head CT was done in clinic so will request report from [facility]. Provide safe, supportive environment. Cont meds for HTN, Parkinson's - both entacapone and carbidopa-levodopa may cause hallucinations, confusion, mood changes, agitation - may want to consult neurology for expert opinion. 04/28/17 Psych: Parkinson's medications held since admission due to concerns listed above by hospitalist. Patient reports improvement in mood, decrease in hallucinations. Tremor is quite mild at this point even without these meds. Discussed whether mirtazapine which may be helpful for mood, anxiety, sleep and appetite - patient is considering whether she would like to start this medication. I do believe depression is still problematic though psychosis is resolving. Continue current care otherwise. 04/29/17 20:43 Discussed with . Family requested Trazodone and Ativan at HS for sleep. Discussed Ativan would be fine but recommended Remeron instead of Trazodone to target sleep and appetite and mood. DPOA is on agreement 04/30/17 11:42 Pt continues to have poor sleep and VH. Will give Remeron tonight and consider Seroquel in the future 05/01/17 10:15 Some anxiety and confusion yesterday afternoon but slept better. Continue current care
[2017-05-02] MEDS: TRAMADOL 50 MG TABLET PO PRN (02:03)
[2017-05-02] MEDS: POLYETHYL GLYCOL 3350 17gm PACKET PO SCH (08:00)
[2017-05-02] MEDS: ASPIRIN *EC* 81 MG TABLET PO SCH (08:00)
[2017-05-02] MEDS: LOSARTAN 50 MG TABLET PO SCH (08:00)
[2017-05-02] MEDS: ACETAMINOPHEN 325 MG TABLET PO PRN (11:27)
--- NOTE | 2017-05-02 11:32 | Neuropsych Progress Note ---
[facility] Subjective Date: 05/02/17 - Sujective/Severity of Illness Medications: Acetaminophen (Tylenol) 325 - 650 mg PO Q5H PRN PRN Reason: Discomfort Last Admin: 05/02/17 11:27 Dose: 650 mg Aspirin (Ecotrin) 81 mg PO DAILY [facility] Last Admin: 05/02/17 08:00 Dose: 81 mg Bisacodyl (Dulcolax) 10 mg PO DAILY PRN PRN Reason: Constipation Last Admin: 05/01/17 09:20 Dose: 10 mg Carbidopa/Levodopa (Sinemet) 1 tab PO BID [facility] Last Admin: 04/26/17 20:10 Dose: 1 tab Entacapone (Comtan) 200 mg PO BID [facility] Last Admin: 04/26/17 20:10 Dose: 200 mg Haloperidol (Haldol) 0.5 mg PO Q6H PRN PRN Reason: Extreme agitation Haloperidol Lactate (Haldol) 0.5 mg IM Q6H PRN PRN Reason: Extreme agitation Lorazepam (Ativan Inj) 0.5 mg IM Q6H PRN PRN Reason: Extreme agitation Lorazepam (Ativan) 0.5 mg PO Q6H PRN PRN Reason: Extreme agitation Last Admin: 04/30/17 04:12 Dose: 0.5 mg Lorazepam (Ativan) 0.5 mg PO HS [facility] Last Admin: 05/01/17 23:45 Dose: Not Given Losartan Potassium (Cozaar) 50 mg PO DAILY [facility] Last Admin: 05/02/17 08:00 Dose: 50 mg Magnesium Hydroxide (Mom) 30 ml PO DAILY PRN PRN Reason: Constipation Mirtazapine (Remeron) 15 mg PO HS [facility] Last Admin: 05/01/17 23:45 Dose: Not Given Polyethylene Glycol (Miralax) 17 gm PO DAILY [facility] Last Admin: 05/02/17 08:00 Dose: 17 gm Quetiapine Fumarate (Seroquel) 25 mg PO TID PRN Tramadol HCl (Ultram) 50 mg PO Q6H PRN PRN Reason: Pain Last Admin: 05/02/17 02:03 Dose: 50 mg Subjective: Pt seen and chart examined. Nursing reports pt is doing well. Some issues with sleep last night but no behaviors noted. On face to face the pt states she is doing well. Mood improved. Denies S/I or psychosis. Tolerating meds. states he feels she is back near baseline. Start Time: 11:00 Stop Time: 11:15 Mental Status Exam Vitals: Last Vital Signs Temp 97.6 F 05/02/17 07:55 Pulse 77 05/02/17 07:55 Resp 18 05/02/17 07:55 BP 154/59 H 05/02/17 07:55 Pulse Ox 99 05/02/17 07:55 Height: 1.5 m Weight: 52.2 kg - Mental Status Exam Muscle Strength/Tone: Normal Dressing: Casual Grooming: Good Attitude: Cooperative Motor Activity: Normal Eye Contact: Fair Speech: Normal Volume: Normal Rhythm: Appropriate Rhythm Orientation: Disoriented to time, Disoriented to place, Oriented to person Mood: Other ("better") Rate of Thoughts: Delayed Thought Organization: Organized (mostly) Associations: Intact Abstract Reasoning: Intact, able to abstract Thought Content: Ruminations (improved), Somatic Concerns Perception/Psychotic: Hx psychosis, not current Current Hallucinations: Visual (intermittent) Language: Naming Intact Fund of Knowledge: Other (decreased) Memory: Poor-recent Suicidal Ideation: Other (Admits SI with aborted suicide attempt prior to admission) Homicidal Ideation: Denies Insight: Impaired Judgement: Impaired Impulse Control: Fair - Laboratory Result Diagrams: 04/27/17 09:38 04/29/17 13:05 Assessment and Plan (1) Primary osteoarthritis of right knee Current visit: No Status: Acute (2) Hypertension Current visit: No Status: Acute (3) Parkinson disease Current visit: No Status: Acute (4) Psychosis Qualifiers: Psychosis type: unspecified psychosis type Qualified Code(s): F29 - Unspecified psychosis not due to a substance or known physiological condition Current visit: Yes Status: Acute Hospital Course Summary Disclaimer: The visit summary below is not to be considered part of the above Progress Note. Hospital Course: 04/26/17 17:46 Impression Hallucinations Morbid ideation Paroxysmal A-fib Anxiety HLD HTN Parkinsons (2004) [place] Urge incontinence OA Plan Agree with dietary consultation; check prealbumin level. Repeat basic labs in am; A1c and lipid panel also ordered. Check EKG d/t hx of PAF - defer decision to start anticoagulants to PCP - Cont ASA for now Statin was recently dc'd per spouse. Add'l records requested from [place] - CT head & EKGs. Existing records were reviewed. -EKGs arrived - A-fib with RVR Rate 140 on 04/23; Sinus with arrhythmia on . -Head CT was done in clinic so will request report from [facility]. Provide safe, supportive environment. Cont meds for HTN, Parkinson's - both entacapone and carbidopa-levodopa may cause hallucinations, confusion, mood changes, agitation - may want to consult neurology for expert opinion. 04/28/17 Psych: Parkinson's medications held since admission due to concerns listed above by hospitalist. Patient reports improvement in mood, decrease in hallucinations. Tremor is quite mild at this point even without these meds. Discussed whether mirtazapine which may be helpful for mood, anxiety, sleep and appetite - patient is considering whether she would like to start this medication. I do believe depression is still problematic though psychosis is resolving. Continue current care otherwise. 04/29/17 20:43 Discussed with . Family requested Trazodone and Ativan at HS for sleep. Discussed Ativan would be fine but recommended Remeron instead of Trazodone to target sleep and appetite and mood. DPOA is on agreement 04/30/17 11:42 Pt continues to have poor sleep and VH. Will give Remeron tonight and consider Seroquel in the future 05/01/17 10:15 Some anxiety and confusion yesterday afternoon but slept better. Continue current care 05/02/17 11:32 Had a good day yesterday. No behaviors. Continue current care
[2017-05-02] MEDS: QUETIAPINE 25 MG TABLET PO PRN (17:14)
[2017-05-02] MEDS: LORazepam 0.5 MG TABLET PO PRN (18:21)
[2017-05-02] MEDS: LORazepam 0.5 MG TABLET PO SCH ×2 (19:49→21:20)
[2017-05-02] MEDS: MIRTAZAPINE 15 MG TABLET PO SCH ×2 (19:49→21:27)
[2017-05-02] MEDS ORDERED: MAG-AL + SIM ORAL LIQUID 30ml PO PRN (20:35)
[2017-05-03] MEDS: LOSARTAN 50 MG TABLET PO SCH (08:30)
[2017-05-03] MEDS: ASPIRIN *EC* 81 MG TABLET PO SCH (08:30)
[2017-05-03] MEDS: POLYETHYL GLYCOL 3350 17gm PACKET PO SCH (08:30)
--- NOTE | 2017-05-03 09:30 | Progress Note ---
- Date 05/03/17 Subjective: Safia was busy organizing things in her room. Her was also present. They both are focused on going home. She has more tremors today compared to last assessment. She states that her appetite has improved and she's eating much better. She denies frequent falls or stumbles. She denies hallucinations since arriving, but yesterday states she asked for a PRN b/c she felt "worked up ". We discussed risks and benefits of anticoagulation - pt states that she's had an irregular heart rate "all my life" which is why she's taken ASA for 40+ years. She denies ever taking any other anticoagulants. Her and her did not indicate interest for or against anticoagulation. Their primary concern at this point is going home. Objective Vital signs: Temperature 97.6 F 05/02/17 20:00 Pulse Rate 90 05/03/17 08:52 Respiratory Rate 16 05/03/17 08:00 Blood Pressure 142/67 H 05/03/17 08:52 Pulse Oximetry 99 05/03/17 08:00 Height/Weight/BMI: Height 1.5 m Weight 52.2 kg Body Mass Index 23.2 - Constitutional Present: no acute distress, well nourished, well developed, thin - Routine HEENT Exam Eye: Absent: conjunctival icterus ENT: Present: oropharynx clear - Routine Respiratory Exam Present: CTA bilaterally - Routine Cardiovascular Exam Present: RRR, S1, S2 - Routine Abdominal Exam Present: soft, normoactive bowel sounds - Routine Extremities Exam Present: no edema - Routine Back/Spine/Pelvis Exam Back/Spine: Present: full ROM - Routine Musculoskeletal Exam Musculoskeletal: Present: moving extremities well - Routine Skin Exam Present: intact, dry, warm - Routine Neurological Exam Present: alert, oriented X3, normal speech, tremors. Absent: facial asymmetry - Routine Psychiatric Exam Present: normal affect, normal thought process, cooperative Results - Labs CBC & Chem 7: 05/03/17 04:07 05/03/17 04:07 Assessment and Plan (1) Hallucinations Current visit: Yes Status: Acute Assessment and Plan: Impression Hallucinations Morbid ideation Paroxysmal A-fib Anxiety HLD HTN Parkinsons (2004) [place] Urge incontinence OA Plan Consider neuro consultation, increased tremors noted today compared to assessment 7 days earlier. Carbidopa-levodopa continues while entacapone is on hold. Would recommend further discussion on risks:benefits of anticoagulation with PCP. I called the office on 04/28/17 and RN reported a side effect of hallucinations while on anticoagulants, and a message was sent to Dr. Dave Cano. Monitor orthostatics for 2-3 days before increasing Cozaar. With Parkinson's she 's at risk for orthostasis. Oral intake 50%+ at meals, improved compared to home oral intake. D/W Dr. Whalen. Dr. Kolb's notes reviewed. Resuscitation Status: Full Code Hospital Course Summary Disclaimer: The visit summary below is not to be considered part of the above Progress Note. Hospital Course: 04/26/17 17:46 Impression Hallucinations Morbid ideation Paroxysmal A-fib Anxiety HLD HTN Parkinsons (2004) [place] Urge incontinence OA Plan Agree with dietary consultation; check prealbumin level. Repeat basic labs in am; A1c and lipid panel also ordered. Check EKG d/t hx of PAF - defer decision to start anticoagulants to PCP - Cont ASA for now Statin was recently dc'd per spouse. Add'l records requested from [place] - CT head & EKGs. Existing records were reviewed. -EKGs arrived - A-fib with RVR Rate 140 on 04/23; Sinus with arrhythmia on . -Head CT was done in clinic so will request report from [facility]. Provide safe, supportive environment. Cont meds for HTN, Parkinson's - both entacapone and carbidopa-levodopa may cause hallucinations, confusion, mood changes, agitation - may want to consult neurology for expert opinion. 04/28/17 Psych: Parkinson's medications held since admission due to concerns listed above by hospitalist. Patient reports improvement in mood, decrease in hallucinations. Tremor is quite mild at this point even without these meds. Discussed whether mirtazapine which may be helpful for mood, anxiety, sleep and appetite - patient is considering whether she would like to start this medication. I do believe depression is still problematic though psychosis is resolving. Continue current care otherwise. 04/29/17 20:43 Discussed with . Family requested Trazodone and Ativan at HS for sleep. Discussed Ativan would be fine but recommended Remeron instead of Trazodone to target sleep and appetite and mood. DPOA is on agreement 04/30/17 11:42 Pt continues to have poor sleep and VH. Will give Remeron tonight and consider Seroquel in the future 05/01/17 10:15 Some anxiety and confusion yesterday afternoon but slept better. Continue current care 05/02/17 11:32 Had a good day yesterday. No behaviors. Continue current care 05/03/17 09:36 Consider neuro consultation, increased tremors noted today compared to assessment 7 days earlier. Carbidopa-levodopa continues while entacapone is on hold. Would recommend further discussion on risks:benefits of anticoagulation with PCP. I called the office on 04/28/17 and RN reported a side effect of hallucinations while on anticoagulants, and a message was sent to Dr. Dave Cano. Monitor orthostatics for 2-3 days before increasing Cozaar. With Parkinson's she 's at risk for orthostasis. Oral intake 50%+ at meals, improved compared to home oral intake.
[2017-05-03] MEDS: LORazepam 0.5 MG TABLET PO PRN (11:25)
[2017-05-03] MEDS: QUETIAPINE 25 MG TABLET PO PRN (16:01)
--- NOTE | 2017-05-03 21:02 | Neuropsych Progress Note ---
[facility] Subjective Date: 05/03/17 - Sujective/Severity of Illness Medications: Acetaminophen (Tylenol) 325 - 650 mg PO Q5H PRN PRN Reason: Discomfort Last Admin: 05/02/17 11:27 Dose: 650 mg Al Hydroxide/Mg Hydroxide (Maalox Plus) 30 ml PO Q4H PRN PRN Reason: Acid Reflux Aspirin (Ecotrin) 81 mg PO DAILY [facility] Last Admin: 05/03/17 08:30 Dose: 81 mg Bisacodyl (Dulcolax) 10 mg PO DAILY PRN PRN Reason: Constipation Last Admin: 05/01/17 09:20 Dose: 10 mg Carbidopa/Levodopa (Sinemet) 1 tab PO BID [facility] Last Admin: 05/03/17 10:09 Dose: 1 tab Entacapone (Comtan) 200 mg PO BID [facility] Last Admin: 04/26/17 20:10 Dose: 200 mg Haloperidol (Haldol) 0.5 mg PO Q6H PRN PRN Reason: Extreme agitation Haloperidol Lactate (Haldol) 0.5 mg IM Q6H PRN PRN Reason: Extreme agitation Lorazepam (Ativan Inj) 0.5 mg IM Q6H PRN PRN Reason: Extreme agitation Lorazepam (Ativan) 0.5 mg PO Q6H PRN PRN Reason: Extreme agitation Last Admin: 05/03/17 11:25 Dose: 0.5 mg Lorazepam (Ativan) 0.5 mg PO HS [facility] Last Admin: 05/02/17 21:20 Dose: Not Given Losartan Potassium (Cozaar) 50 mg PO DAILY [facility] Last Admin: 05/03/17 08:30 Dose: 50 mg Magnesium Hydroxide (Mom) 30 ml PO DAILY PRN PRN Reason: Constipation Mirtazapine (Remeron) 15 mg PO HS [facility] Last Admin: 05/02/17 21:27 Dose: Not Given Polyethylene Glycol (Miralax) 17 gm PO DAILY [facility] Last Admin: 05/03/17 08:30 Dose: 17 gm Quetiapine Fumarate (Seroquel) 25 mg PO TID PRN Last Admin: 05/03/17 16:01 Dose: 25 mg Tramadol HCl (Ultram) 50 mg PO Q6H PRN PRN Reason: Pain Last Admin: 05/02/17 02:03 Dose: 50 mg Subjective: Pt seen and chart examined. Nursing reports pt is doing well. Some issues with sleep last night but no behaviors noted. On face to face the pt states she is doing well. Mood is stable and denies any S/I. Denies psychotic symptoms. Tolerating meds. Feels back to baseline and safe for D/C Start Time: 17:45 Stop Time: 18:00 Mental Status Exam Vitals: Last Vital Signs Temp 98.2 F 05/03/17 19:52 Pulse 66 05/03/17 19:52 Resp 18 05/03/17 19:52 BP 149/67 H 05/03/17 19:52 Pulse Ox 97 05/03/17 19:52 Height: 1.5 m Weight: 52.4 kg - Mental Status Exam Muscle Strength/Tone: Normal Dressing: Casual Grooming: Good Attitude: Cooperative Motor Activity: Normal Eye Contact: Fair Speech: Normal Volume: Normal Rhythm: Appropriate Rhythm Orientation: Disoriented to time, Disoriented to place, Oriented to person Mood: Other ("better") Rate of Thoughts: Appropriate Rate Thought Organization: Organized (mostly) Associations: Intact Abstract Reasoning: Intact, able to abstract Thought Content: Normal, Somatic Concerns Perception/Psychotic: Hx psychosis, not current Language: Naming Intact Fund of Knowledge: Appropriate Memory: Poor-recent Suicidal Ideation: Other (Admits SI with aborted suicide attempt prior to admission) Homicidal Ideation: Denies Insight: Fair Judgement: Fair Impulse Control: Fair, Other - Laboratory Result Diagrams: 05/03/17 04:07 05/03/17 04:07 Laboratory Results - last 24 hr 05/03/17 05/03/17 04:07 04:07 WBC 5.0 RBC 3.82 L Hgb 11.8 L Hct 36.0 MCV 94.2 MCH 30.9 MCHC 32.8 RDW Std Deviation 41.4 Plt Count 243 MPV 10.2 Immature Gran % (Auto) 0.0 Neut % (Auto) 45.5 Lymph % (Auto) 43.8 [place] % (Auto) 8.1 Eos % (Auto) 2.2 Baso % (Auto) 0.4 Neut # (Auto) 2.3 Lymph # (Auto) 2.2 [place] # (Auto) 0.4 Eos # (Auto) 0.1 Baso # (Auto) 0.0 Abs Immat Gran (auto) 0.00 Turbidity < 20 Sodium 145 H Potassium 4.0 Chloride 112 H Carbon Dioxide 26 Anion Gap 7 BUN 17.0 Creatinine 0.7 GFR Calculation 81 BUN/Creatinine Ratio 24 Glucose 92 Calculated Osmolality 281 H Calcium 9.3 Icterus Index < 2 Specimen Hemolysis < 15 Assessment and Plan (1) Primary osteoarthritis of right knee Current visit: No Status: Acute (2) Hypertension Current visit: No Status: Acute (3) Parkinson disease Current visit: No Status: Acute (4) Psychosis Qualifiers: Psychosis type: unspecified psychosis type Qualified Code(s): F29 - Unspecified psychosis not due to a substance or known physiological condition Current visit: Yes Status: Acute Hospital Course Summary Disclaimer: The visit summary below is not to be considered part of the above Progress Note. Hospital Course: 04/26/17 17:46 Impression Hallucinations Morbid ideation Paroxysmal A-fib Anxiety HLD HTN Parkinsons (2004) AKPt is stable oPt Urge incontinence OA Plan Agree with dietary consultation; check prealbumin level. Repeat basic labs in am; A1c and lipid panel also ordered. Check EKG d/t hx of PAF - defer decision to start anticoagulants to PCP - Cont ASA for now Statin was recently dc'd per spouse. Add'l records requested from [place] - CT head & EKGs. Existing records were reviewed. -EKGs arrived - A-fib with RVR Rate 140 on 04/23; Sinus with arrhythmia on . -Head CT was done in clinic so will request report from [facility]. Provide safe, supportive environment. Cont meds for HTN, Parkinson's - both entacapone and carbidopa-levodopa may cause hallucinations, confusion, mood changes, agitation - may want to consult neurology for expert opinion. 04/28/17 Psych: Parkinson's medications held since admission due to concerns listed above by hospitalist. Patient reports improvement in mood, decrease in hallucinations. Tremor is quite mild at this point even without these meds. Discussed whether mirtazapine which may be helpful for mood, anxiety, sleep and appetite - patient is considering whether she would like to start this medication. I do believe depression is still problematic though psychosis is resolving. Continue current care otherwise. 04/29/17 20:43 Discussed with . Family requested Trazodone and Ativan at HS for sleep. Discussed Ativan would be fine but recommended Remeron instead of Trazodone to target sleep and appetite and mood. DPOA is on agreement 04/30/17 11:42 Pt continues to have poor sleep and VH. Will give Remeron tonight and consider Seroquel in the future 05/01/17 10:15 Some anxiety and confusion yesterday afternoon but slept better. Continue current care 05/02/17 11:32 Had a good day yesterday. No behaviors. Continue current care 05/03/17 09:36 Consider neuro consultation, increased tremors noted today compared to assessment 7 days earlier. Carbidopa-levodopa continues while entacapone is on hold. Would recommend further discussion on risks:benefits of anticoagulation with PCP. I called the office on 04/28/17 and RN reported a side effect of hallucinations while on anticoagulants, and a message was sent to Dr. Dave Cano. Monitor orthostatics for 2-3 days before increasing Cozaar. With Parkinson's she 's at risk for orthostasis. Oral intake 50%+ at meals, improved compared to home oral intake. 05/03/17 21:00 Pt is stable from a psychiatric standpoint. Will plan D/C tomorrow
[2017-05-03] MEDS: MIRTAZAPINE 15 MG TABLET PO SCH (21:30)
[2017-05-03] MEDS: LORazepam 0.5 MG TABLET PO SCH (21:30)
[2017-05-04 08:00] VITALS: BP 167/67; PULSE 84; RESP 16; TEMP 97.4; O2SAT 100
[2017-05-04] MEDS: LOSARTAN 50 MG TABLET PO SCH (08:00)
[2017-05-04] MEDS: ASPIRIN *EC* 81 MG TABLET PO SCH (08:00)
[2017-05-04] MEDS: POLYETHYL GLYCOL 3350 17gm PACKET PO SCH (08:01)
== END 2017-05-04 09:30 | disposition home or self-care (01) | DRG 885 ==
LOC: GEN 14:30
PROVIDERS: ADMIT Psychiatry & Neurology Psychiatry; ATTEND Psychiatry & Neurology Psychiatry